=== PATIENT | male | born 1970 | race Two or more races ===

== ENCOUNTER 2021-10-06 23:38 | Emergency (ER) | payer OTHER ==
[2021-10-07 00:05] VITALS: TEMP 98.4; BMI 28.5
[2021-10-07] MEDS ORDERED: LORazepam 2 MG/ML SDV VIAL IVPUSH ONE (00:51)
[2021-10-07 01:32] LABS: BASO % 0.4 % (0-2.0); EOS % 0.1 % (0-4.5); HEMATOCRIT 34.8 % (35.4-49); HEMOGLOBIN 11.8 GM/dL (11.7-16.9); LYMPH % 7.6 % (8-40); MCHC 33.8 g/dl (32.0-35.9); MEAN CELL VOLUME 82.7 fl (80-96); MEAN PLT VOLUME 6.7 fl (7.5-11.1); MONO % 9.4 % (3.8-10.2); NEUT % 82.5 % (42.8-82.8); PLATELET COUNT 228 10^3/uL (134-434); RBC 4.21 M/mm3 (4.00-5.60); RDW 15.4 % (11.9-15.9); WHITE BLOOD COUNT 6.5 K/mm3 (4.0-10.0)
[2021-10-07 01:51] LABS: CHLORIDE 103 mmol/L (98-107); SODIUM 138 mmol/L (136-145)
[2021-10-07 01:53] LABS: ALBUMIN 3.8 g/dl (3.4-5.0); ANION GAP 14 MMOL/L (8-16); CO2 20 mmol/L (21-32); GLUCOSE,RANDOM 238 mg/dL (74-106)
[2021-10-07 01:54] LABS: BLOOD UREA NITROGEN 6.6 mg/dL (7-18)
[2021-10-07 01:56] LABS: SGPT/ALT 56 U/L (13-61)
[2021-10-07 01:57] LABS: CREATININE 0.8 mg/dL (0.55-1.3); SGOT/AST 104 U/L (15-37)
[2021-10-07 01:58] LABS: BILIRUBIN,TOTAL 0.6 mg/dL (0.2-1); TOT PROT 7.1 g/dl (6.4-8.2)
[2021-10-07 01:59] LABS: ALK PHOS 73 U/L (45-117)
[2021-10-07 02:27] LABS: MAGNESIUM 1.4 mg/dL (1.8-2.4)
[2021-10-07] MEDS ORDERED: diazePAM 5 MG TABLET PO ONE (02:27)
[2021-10-07] MEDS ORDERED: diazePAM 5 MG TABLET ONE (02:37)
[2021-10-07] MEDS ORDERED: ASPIRIN 81 MG CHEWABLE TABLETS PO ONE (03:32)
[2021-10-07] MEDS ORDERED: chlordiazePOXIDE HCL 25 MG CAPSULE PO ONE (03:32)
[2021-10-07] MEDS ORDERED: MAGNESIUM SULF 50% (8.12 MEQ/2 ML-1 GM VIAL) IVPB ONE ×2 (03:35→03:42)
[2021-10-07] MEDS ORDERED: chlordiazePOXIDE HCL 25 MG CAPSULE ONE (03:50)
[2021-10-07] MEDS ORDERED: MAGNESIUM 1GM/D5W - 1 GM/100 ML IVPB IVPB ONE (03:50)
[2021-10-07] MEDS ORDERED: ASPIRIN 81 MG CHEWABLE TABLETS ONE (03:50)
[2021-10-07] MEDS ORDERED: MAGNESIUM SULFATE IN WATER 2 GM/50 ML IVPB IVPB ONE (03:51)
[2021-10-07] MEDS ORDERED: SODIUM CHLORIDE 0.9% 500 ML INFUS.BAG IV ONE (04:17)
[2021-10-07] MEDS ORDERED: diazePAM CARPU-JECT 10 MG/2 ML DISP.SYRIN IVPUSH ONE (04:19)
[2021-10-07] MEDS ORDERED: diazePAM CARPU-JECT 10 MG/2 ML DISP.SYRIN ONE (05:13)
[2021-10-07 05:19] VITALS: BP 148/87
[2021-10-07 05:33] VITALS: PULSE 103
== END 2021-10-07 05:34 | disposition home or self-care (01) ==
LOC: JER 23:38
PROC: 3E033GC Introduction of Other Therapeutic Substance into Peripheral Vein, Percutaneous Approach (ICD-10-PCS; principal; 2021-10-06)
DX: F10.239 Alcohol dependence with withdrawal, unspecified (principal)
CPT/HCPCS: 36415; 80053; 80307; 83735; 84484; 85025; 93005; 93010; 99285-25; C9803-CS; U0003; U0005

== ENCOUNTER 2021-10-07 06:07 | Inpatient (IN) | payer OTHER ==
[2021-10-07 07:09] VITALS: BMI 28.5
[2021-10-07] MEDS ORDERED: NICOTINE 10 MG CARTRIDGE (INHALER) IH PRN (11:10)
[2021-10-07] MEDS ORDERED: ACETAMINOPHEN 325 MG TABLET (FP) PO PRN ×2 (11:10)
[2021-10-07] MEDS ORDERED: BENZOCAINE/MENTHOL (CHLORASEPTIC ) LOZENGE MM PRN (11:10)
[2021-10-07] MEDS ORDERED: ONDANSETRON *ODT* 4 MG TABLET SL PRN (11:10)
[2021-10-07] MEDS ORDERED: MAG HYDROX/AL HYDROX/SIMETH 30 ML UNIT-DOSE CUP PO PRN (11:10)
[2021-10-07] MEDS ORDERED: MAGNESIUM CITRATE 300 ML BOTTLE PO PRN (11:10)
[2021-10-07] MEDS ORDERED: chlordiazePOXIDE HCL 25 MG CAPSULE PO PRN (11:10)
[2021-10-07] MEDS ORDERED: IBUPROFEN 400 MG TABLET (FP) PO PRN (11:10)
[2021-10-07] MEDS ORDERED: BISMUTH SUBSALICYLATE 262 MG/15 ML BTL PO PRN (11:10)
[2021-10-07] MEDS ORDERED: DICYCLOMINE HCL 10 MG CAPSULE PO PRN (11:10)
[2021-10-07] MEDS ORDERED: MAGNESIUM HYDROX 2400MG/30ML ORAL SUSPENSION 30 ML CUP PO PRN (11:10)
[2021-10-07] MEDS ORDERED: chlordiazePOXIDE HCL 25 MG CAPSULE PO ONE (11:30)
[2021-10-07] MEDS ORDERED: chlordiazePOXIDE HCL 25 MG CAPSULE PO SCH (11:30)
[2021-10-07] MEDS ORDERED: chlordiazePOXIDE HCL 25 MG CAPSULE ONE (12:00)
[2021-10-07] MEDS ORDERED: metFORMIN HCL 500 MG TABLET (FP) PO SCH (13:15)
[2021-10-07] MEDS: hydrOXYzine PAMOATE 25 MG CAPSULE (FP) PO SCH ×3 (14:07→22:33)
[2021-10-07] MEDS: LISINOPRIL 20 MG TABLET PO SCH (14:21)
[2021-10-07] MEDS: HYDROCHLOROTHIAZIDE 25 MG TABLET (FP) PO SCH (14:21)
[2021-10-07] MEDS: INSULIN (LEVEMIR) 100 UNITS/ML UNITS SQ SCH ×2 (14:22→22:33)
[2021-10-07] MEDS: PRENATAL VITAMINS W/ FOLIC ACID TABLET (FP) PO SCH (14:22)
[2021-10-07] MEDS: INSULIN SLIDING SCALE (NOVOLOG) 1 VIAL SQ SCH (17:17)
[2021-10-07] MEDS: chlordiazePOXIDE HCL 25 MG CAPSULE PO SCH ×2 (17:19→22:34)
[2021-10-07] MEDS: IBUPROFEN 600 MG TABLET (FP) PO PRN (17:21)
[2021-10-07] MEDS: FENOFIBRIC ACID 135 MG CAP PO SCH (19:17)
[2021-10-07] MEDS: MELATONIN 5 MG TABLETS PO SCH (22:33)
[2021-10-07] MEDS: ATORVASTATIN CA 10 MG TABLET (FP) PO SCH (22:33)
[2021-10-07] MEDS: THIAMINE HCL 100 MG TABLET (FP) PO SCH (22:33)
[2021-10-07] MEDS: METHOCARBAMOL 500 MG TABLET PO PRN (22:36)
[2021-10-08] MEDS: METHOCARBAMOL 500 MG TABLET PO PRN (05:52)
[2021-10-08] MEDS: chlordiazePOXIDE HCL 25 MG CAPSULE PO SCH ×4 (05:52→22:40)
[2021-10-08] MEDS: hydrOXYzine PAMOATE 25 MG CAPSULE (FP) PO SCH ×5 (05:52→22:41)
[2021-10-08] MEDS: INSULIN SLIDING SCALE (NOVOLOG) 1 VIAL SQ SCH ×2 (07:04→18:23)
[2021-10-08] MEDS ORDERED: METOPROLOL TARTRATE 25 MG TABLET (FP) PO ONE (09:05)
[2021-10-08] MEDS: INSULIN (LEVEMIR) 100 UNITS/ML UNITS SQ SCH ×2 (09:19→18:23)
[2021-10-08] MEDS: LISINOPRIL 20 MG TABLET PO SCH (10:37)
[2021-10-08] MEDS: HYDROCHLOROTHIAZIDE 25 MG TABLET (FP) PO SCH (10:37)
[2021-10-08] MEDS: FENOFIBRIC ACID 135 MG CAP PO SCH (10:38)
[2021-10-08] MEDS: LOPERAMIDE HCL 2 MG CAPSULE PO PRN ×2 (10:38→19:13)
[2021-10-08] MEDS: PRENATAL VITAMINS W/ FOLIC ACID TABLET (FP) PO SCH (11:34)
[2021-10-08] MEDS: MELATONIN 5 MG TABLETS PO SCH (22:41)
[2021-10-08] MEDS: ATORVASTATIN CA 10 MG TABLET (FP) PO SCH (22:41)
[2021-10-08] MEDS: THIAMINE HCL 100 MG TABLET (FP) PO SCH (22:41)
[2021-10-09] MEDS: hydrOXYzine PAMOATE 25 MG CAPSULE (FP) PO SCH ×5 (07:48→22:46)
[2021-10-09] MEDS: chlordiazePOXIDE HCL 25 MG CAPSULE PO SCH ×4 (08:48→22:45)
[2021-10-09] MEDS: INSULIN (LEVEMIR) 100 UNITS/ML UNITS SQ SCH ×2 (09:00→18:34)
[2021-10-09] MEDS: INSULIN SLIDING SCALE (NOVOLOG) 1 VIAL SQ SCH ×2 (09:01→17:22)
[2021-10-09] MEDS: LISINOPRIL 20 MG TABLET PO SCH (11:03)
[2021-10-09] MEDS: PRENATAL VITAMINS W/ FOLIC ACID TABLET (FP) PO SCH (11:03)
[2021-10-09] MEDS: HYDROCHLOROTHIAZIDE 25 MG TABLET (FP) PO SCH (11:03)
[2021-10-09] MEDS: FENOFIBRIC ACID 135 MG CAP PO SCH (11:04)
[2021-10-09] MEDS: THIAMINE HCL 100 MG TABLET (FP) PO SCH (22:46)
[2021-10-09] MEDS: MELATONIN 5 MG TABLETS PO SCH (22:46)
[2021-10-09] MEDS: ATORVASTATIN CA 10 MG TABLET (FP) PO SCH (22:46)
[2021-10-09] MEDS: IBUPROFEN 600 MG TABLET (FP) PO PRN (22:47)
[2021-10-09] MEDS: METHOCARBAMOL 500 MG TABLET PO PRN (22:48)
[2021-10-10] MEDS ORDERED: chlordiazePOXIDE HCL 10 MG CAPSULE PO PRN
[2021-10-10] MEDS: hydrOXYzine PAMOATE 25 MG CAPSULE (FP) PO SCH ×5 (06:39→23:58)
[2021-10-10] MEDS: chlordiazePOXIDE HCL 10 MG CAPSULE PO SCH ×4 (06:39→23:57)
[2021-10-10] MEDS: INSULIN (LEVEMIR) 100 UNITS/ML UNITS SQ SCH ×2 (06:41→17:51)
[2021-10-10] MEDS: INSULIN SLIDING SCALE (NOVOLOG) 1 VIAL SQ SCH ×3 (06:48→17:52)
[2021-10-10 09:01] VITALS: TEMP 98.3
[2021-10-10] MEDS: LISINOPRIL 20 MG TABLET PO SCH (10:40)
[2021-10-10] MEDS: HYDROCHLOROTHIAZIDE 25 MG TABLET (FP) PO SCH (10:40)
[2021-10-10] MEDS: PRENATAL VITAMINS W/ FOLIC ACID TABLET (FP) PO SCH (10:40)
[2021-10-10] MEDS: FENOFIBRIC ACID 135 MG CAP PO SCH (10:40)
[2021-10-10] MEDS: IBUPROFEN 600 MG TABLET (FP) PO PRN (10:43)
[2021-10-10 13:01] VITALS: BP 118/70; PULSE 78
[2021-10-10 14:42] LABS: BASO % 1.4 % (0-2.0); HEMATOCRIT 33.6 % (35.4-49); HEMOGLOBIN 11.2 GM/dL (11.7-16.9); LYMPH % 24.9 % (8-40); MCH 27.8 pg (25.7-33.7); MCHC 33.2 g/dl (32.0-35.9); MEAN CELL VOLUME 83.9 fl (80-96); MEAN PLT VOLUME 8.4 fl (7.5-11.1); MONO % 12.7 % (3.8-10.2); PLATELET COUNT 152 10^3/uL (134-434); RBC 4.01 M/mm3 (4.00-5.60); WHITE BLOOD COUNT 2.4 K/mm3 (4.0-10.0)
[2021-10-10 14:53] LABS: CALCIUM 8.9 mg/dL (8.5-10.1)
[2021-10-10 14:54] LABS: ALBUMIN 3.2 g/dl (3.4-5.0); BLOOD UREA NITROGEN 7.3 mg/dL (7-18)
[2021-10-10 14:59] LABS: BILIRUBIN,TOTAL 0.8 mg/dL (0.2-1)
[2021-10-10] MEDS: ATORVASTATIN CA 10 MG TABLET (FP) PO SCH (23:57)
[2021-10-10] MEDS: THIAMINE HCL 100 MG TABLET (FP) PO SCH (23:58)
[2021-10-10] MEDS: MELATONIN 5 MG TABLETS PO SCH (23:58)
[2021-10-11] MEDS ORDERED: chlordiazePOXIDE HCL 10 MG CAPSULE PO SCH (05:00)
[2021-10-11] MEDS: hydrOXYzine PAMOATE 25 MG CAPSULE (FP) PO SCH (06:46)
[2021-10-11] MEDS: INSULIN SLIDING SCALE (NOVOLOG) 1 VIAL SQ SCH (06:48)
[2021-10-11] MEDS: INSULIN (LEVEMIR) 100 UNITS/ML UNITS SQ SCH (06:48)
[2021-10-12] MEDS ORDERED: chlordiazePOXIDE HCL 10 MG CAPSULE PO ONE (05:00)
== END 2021-10-11 07:20 | disposition short-term general hospital (02) | DRG 897 ==
LOC: YASAS 06:07 → Y3N 11:35
PROVIDERS: ADMIT Allergy & Immunology; ATTEND Surgery
PROC: HZ2ZZZZ Detoxification Services for Substance Abuse Treatment (ICD-10-PCS; principal; 2021-10-07)
DX: F10.230 Alcohol dependence with withdrawal, uncomplicated (principal); I10 Essential (primary) hypertension; E11.65 Type 2 diabetes mellitus with hyperglycemia; Z79.84 Long term (current) use of oral hypoglycemic drugs; Z87.891 Personal history of nicotine dependence; S82.842D Displaced bimalleolar fracture of left lower leg, subsequent encounter for closed fracture with routine healing; X58.XXXD Exposure to other specified factors, subsequent encounter
CPT/HCPCS: 36415; 80053; 82962; 85025; 86780; 87811; C9803-CS; Q0162; U0003; U0005

== ENCOUNTER 2021-10-10 13:14 | Emergency (ER) | payer OTHER ==
[2021-10-10 13:35] VITALS: TEMP 97; BMI 28.5
[2021-10-10] MEDS ORDERED: SODIUM CHLORIDE 0.9% 500 ML INFUS.BAG IV ONE (15:53)
[2021-10-10 21:18] VITALS: BP 121/72; PULSE 91
== END 2021-10-10 21:19 | disposition short-term general hospital (02) ==
LOC: JERFT 13:14
PROC: 3E033NZ Introduction of Analgesics, Hypnotics, Sedatives into Peripheral Vein, Percutaneous Approach (ICD-10-PCS; principal; 2021-10-10)
DX: S82.842A Displaced bimalleolar fracture of left lower leg, initial encounter for closed fracture (principal)
CPT/HCPCS: 73610-TC-LT-FY; 99284-25